=== PATIENT | female | born 1985 | race Caucasian/White ===

== ENCOUNTER 2023-05-31 10:16 | Emergency (ER) | payer OTHER ==
[~2023-05-31] VITALS: Ht 170.2 cm; Wt 63.6 kg
[~2023-05-31 10:16] MED LIST: DOXYCYCLINE 10100 MG PO
[2023-05-31 10:27] VITALS: TEMP 98
[2023-05-31] MEDS ORDERED: NORCO 325 MG-51 TAB PO (12:11)
[2023-05-31] MEDS ORDERED: cefTRIAXone 1 G,Lidocaine PF 1% 2.1 ML IM ONE (12:15)
[2023-05-31 12:22] VITALS: BP 109/80; PULSE 78
== END 2023-05-31 12:27 | disposition home or self-care (01) ==
LOC: COL.ER 10:16
DX: L03.032 Cellulitis of left toe (principal)
CPT/HCPCS: J0696

== ENCOUNTER 2023-07-02 07:42 | Emergency (ER) | payer OTHER ==
[~2023-07-02] VITALS: Ht 170.2 cm; Wt 63.6 kg
[~2023-07-02 07:42] MED LIST changes: +NORCO 325 MG-51 TAB PO
[2023-07-02] MEDS ORDERED: ZYRTEC5 MG PO (07:52)
[2023-07-02 08:11] LABS: BASO % 0.4 % (0.0-2.0); EOS # 0.1 K/mm3 (0.0-0.7); EOS % 1.1 % (0.0-4.0); GRAN # 2.6 K/mm3 (1.4-6.5); GRAN % 44.9 % (42.2-75.2); HEMATOCRIT 41.8 % (37.0-47.0); HEMOGLOBIN 13.6 g/dl (12.5-16.0); LYMPH # 2.6 K/mm3 (1.2-3.4); LYMPH % 45.9 % (20.0-51.0); MEAN CELL VOLUME 92 fl (80.0-100.0); MEAN CORPUSCULAR HEMOGLOBIN 30 pg (27-31); MEAN CORPUSCULAR HGB CONC 33 g/dl (33.0-37.0); MEAN PLATELET VOLUME 9.7 fl (7.4-10.4); MONO # 0.4 K/mm3 (0.1-0.6); MONO % 7.5 % (1.7-9.3); PLATELET COUNT 248 K/mm3 (130-400); RED BLOOD COUNT 4.55 M/mm3 (4.10-5.30); REDCELL DISTRIBUTION WIDTH-CV 12.4 % (11.5-14.5)
[2023-07-02 08:41] LABS: ALANINE AMINOTRANSFERASE 13 U/L (0-55); ALBUMIN 4.2 gm/dL (3.5-5.0); ALKALINE PHOSPHATASE 53 U/L (40-150); ANION GAP 11 mmol/L (7-16); AST,SGOT 19 U/L (5-34); BILIRUBIN,TOTAL 0.7 mg/dL (0.2-1.2); BLOOD UREA NITROGEN 12 mg/dL (7-19); CALCIUM 9.8 mg/dL (8.4-10.2); CARBON DIOXIDE 20 mmol/L (22-29); CHLORIDE 108 mmol/L (98-107); CREATININE, serum 0.81 mg/dL (0.57-1.11); GLUCOSE 96 mg/dL (70-99); LIPASE 15 U/L (8-78); POTASSIUM 3.3 mmol/L (3.5-4.5); SODIUM 139 mmol/L (136-145); TOTAL PROTEIN 7.8 gm/dL (6.2-8.1)
[2023-07-02 09:00] LABS: TSH w REFLEX 2.904 uIU/mL (0.350-4.940)
[2023-07-02 09:01] LABS: TROPONIN-I < 0.010 ng/mL (0.00-0.033)
[2023-07-02 10:15] VITALS: BP 112/62; PULSE 64; TEMP 98.1
== END 2023-07-02 10:20 | disposition home or self-care (01) ==
LOC: COL.ER 07:42
PROVIDERS: Personal Emergency Response Attendant
DX: R07.89 Other chest pain (principal); R00.2 Palpitations